=== PATIENT | female | born 1960 | race Caucasian/White ===

== ENCOUNTER 2019-01-09 15:52 | Outpatient (CLI) | payer OTHER ==
[~2019-01-09 15:52] MED LIST: NEURONTIN600 MG PO
== END 2019-01-09 18:00 | disposition home or self-care (01) ==
LOC: RAD 15:52
DX: M25.511 Pain in right shoulder (principal); M75.31 Calcific tendinitis of right shoulder

== ENCOUNTER 2019-03-22 15:28 | Inpatient (IN) | payer OTHER ==
[~2019-03-22] VITALS: Ht 160 cm; Wt 63.5 kg
[2019-03-22] MEDS ORDERED: NEURONTIN800 MG PO (16:21)
--- NOTE | 2019-03-22 16:22 | NUR ---
SE RECIBE PTE AMBULANDO ALERTA Y ORIENTADA X3 QUIEN REFIERE DOLOR ABDOMINAL DESDE ANOCHE. PTE REFIERE QUE ANOCHE PRESENTO MAS DE 3 VOMITOS Y HOY NAM PRESENTADO NAUSEAS. SE UBICA A PTE EN AREA DE OBSERVACION PARA SER EVALUADA POR MEDICO.
--- NOTE | 2019-03-22 17:39 | NUR ---
PTE. ES EVALUADA POR DR. RAMON. SE EDUCA A PTE SOBRE ORDENES MEDICAS Y PTE REFIERE ENTENDER. MS. Noyola. VILMA CANALIZA A PTE Y REALIZA MUESTRAS DE CHINO Y SON ENVIADAS A LABORATORIO. SE ADMINISTRAN MEDICAMENTOS ALFONSO ORDEN MEDICA LOS CUALES PTE TOLERA. SE YESENIA CONTRASTE PO PARA ESTUDIO. SE MANTIENE EN OBSERVACION POR CAAMBIOS.
--- NOTE | 2019-03-22 23:01 | NUR ---
SE RECIBE PACIENTE ALERTA Y ORIENTADA EN CAMA CON BARRANDAS ELEVADAS POR NEVILLE SEGURIDAD, PACIENTE EN COMPANIA DE FAMILIAR. PACIENTE CON VENOPUNICON PATENTE MELODIE DE EDEMA Y ERRITEMA CON DXT.9 NSS BAJANDO A 100ML/HR.PACIENTE CONSULTADA CON EL DR. GURU SANTACRUZ. SE DOMINIQUE A PACIENTE EN CAMA BAJO OBSERVACION POR CAM BIOS EN NEVILLE CONDICION.
[2019-03-23] MEDS ORDERED: GABAPENTIN600 MG PO (09:03)
[2019-03-27] MEDS ORDERED: CIPRO500 MG PO (18:28)
[2019-03-27] MEDS ORDERED: PROTONIX40 MG PO (18:29)
[2019-03-27] MEDS ORDERED: METRONIDAZOLE500 MG PO (18:29)
== END 2019-03-27 18:49 | disposition home or self-care (01) | DRG 392 ==
LOC: ER 15:28 → SURH 23:32 → MEDJ 03-26 15:48
PROVIDERS: ADMIT Internal Medicine
PROC: BW21ZZZ Computerized Tomography (CT Scan) of Abdomen and Pelvis (ICD-10-PCS; principal; 2019-03-22)
DX: K57.32 Diverticulitis of large intestine without perforation or abscess without bleeding (principal)

== ENCOUNTER 2020-01-17 20:23 | Emergency (ER) | payer OTHER ==
[~2020-01-17] VITALS: Ht 152.4 cm; Wt 58.1 kg
[~2020-01-17 20:23] MED LIST changes: +CIPRO500 MG PO; +GABAPENTIN600 MG PO; +METRONIDAZOLE500 MG PO; +NEURONTIN800 MG PO; +PROTONIX40 MG PO
[2020-01-18] MEDS ORDERED: PHENERGAN25 MG PO (01:41)
== END 2020-01-18 02:00 | disposition home or self-care (01) ==
LOC: ER 20:23
DX: K29.60 Other gastritis without bleeding (principal); R42 Dizziness and giddiness; R51 Headache

== ENCOUNTER → 2021-08-18 11:51 | Outpatient (CLI) | payer OTHER ==
[~2021-08-18 11:51] MED LIST changes: +PHENERGAN25 MG PO
== END | disposition home or self-care (01) ==
LOC: LAB 11:51
PROVIDERS: ATTEND Internal Medicine Cardiovascular Disease
DX: I10 Essential (primary) hypertension (principal); E11.9 Type 2 diabetes mellitus without complications; E78.00 Pure hypercholesterolemia, unspecified

== ENCOUNTER → 2021-09-01 07:10 | Outpatient (CLI) | payer OTHER | END | disposition home or self-care (01) | LOC: LAB 07:10 | PROVIDERS: ATTEND Internal Medicine | DX: U07.1 COVID-19 (principal); B39.1 Chronic pulmonary histoplasmosis capsulati ==

== ENCOUNTER 2021-09-01 07:19 | Outpatient (CLI) | payer OTHER | END 2021-09-01 07:20 | disposition home or self-care (01) | LOC: NUCLEAR 07:19 | PROVIDERS: ATTEND Internal Medicine Cardiovascular Disease | DX: I20.9 Angina pectoris, unspecified (principal) ==

== ENCOUNTER → 2022-07-03 11:43 | Outpatient (CLI) | payer OTHER | END | disposition home or self-care (01) | LOC: LAB 11:43 | PROVIDERS: ATTEND General Practice | DX: R05.9 Cough, unspecified (principal); R50.9 Fever, unspecified; R06.02 Shortness of breath; Z20.822 Contact with and (suspected) exposure to COVID-19 ==

== ENCOUNTER 2023-05-03 12:13 | Emergency (ER) | payer OTHER ==
[~2023-05-03] VITALS: Ht 152.4 cm; Wt 63.5 kg
[2023-05-03] MEDS ORDERED: NABUMETONE750 MG PO (13:38)
== END 2023-05-03 14:42 | disposition home or self-care (01) ==
LOC: ER 12:13
DX: M25.511 Pain in right shoulder (principal); M75.51 Bursitis of right shoulder; M79.7 Fibromyalgia
CPT/HCPCS: 29105; 73030; 96372; 99284; J1885

== ENCOUNTER 2024-07-17 07:41 | Outpatient (CLI) | payer OTHER ==
[~2024-07-17 07:41] MED LIST changes: +NABUMETONE750 MG PO
== END 2024-07-17 07:49 | disposition home or self-care (01) ==
LOC: MAMO-SONO 07:41
PROVIDERS: ATTEND Internal Medicine
DX: N60.39 Fibrosclerosis of unspecified breast (principal); Z12.31 Encounter for screening mammogram for malignant neoplasm of breast

== ENCOUNTER 2024-07-17 10:07 | Outpatient (CLI) | payer OTHER | END 2024-07-17 10:08 | disposition home or self-care (01) | LOC: NUCLEAR 10:07 | PROVIDERS: ATTEND Internal Medicine | DX: Z13.820 Encounter for screening for osteoporosis (principal); M81.0 Age-related osteoporosis without current pathological fracture ==